=== PATIENT | female | born 1975 | race Caucasian/White ===

== ENCOUNTER 2018-05-03 04:28 | Emergency (ER) | payer SELFPAY ==
[2018-05-03] MEDS ORDERED: KETOROLAC TROMETHAMINE INJ/PF 30 MG/1 ML SDV IM ONE (04:50)
[2018-05-03] MEDS ORDERED: ONDANSETRON 4 MG TAB.RAPDIS PO ONE (04:51)
--- NOTE | 2018-05-03 04:53 | ER Document Report ---
ED General - General Chief Complaint: Flank Pain Stated Complaint: RIGHT SIDE PAIN Time Seen by Provider: 05/03/18 04:48 Notes: Patient is a 42-year-old female presents with complaint of pain of the right kidney. Some nausea. Symptoms started yesterday. She still having some dysuria as well and spinning burning with urination. She has a history of kidney infection says this feels very similar. No history of kidney stone. Some nausea. No vomiting. No diarrhea. No anterior abdominal pain. TRAVEL OUTSIDE OF THE [place] IN LAST 30 DAYS: No - Related Data Allergies/Adverse Reactions: No Known Allergies Allergy (Verified 05/03/18 04:55) Past Medical History - Social History Smoking Status: Unknown if Ever Smoked Frequency of alcohol use: None Drug Abuse: None Family History: Reviewed & Not Pertinent Review of Systems - Review of Systems Notes: My Normal Review Basic REVIEW OF SYSTEMS: CONSTITUTIONAL : Denies fever, chills, or sweats. Denies recent illness. RESPIRATORY: Denies cough, cold, or chest congestion. Denies shortness of breath, difficulty breathing, or wheezing. GASTROINTESTINAL: Denies abdominal pain. Denies nausea, vomiting, or diarrhea. GENITOURINARY: Dysuria MUSCULOSKELETAL: Pain over right lower back. SKIN: Denies rash or skin lesions. NEUROLOGICAL: Denies sensory or motor loss. ALL OTHER SYSTEMS REVIEWED AND NEGATIVE. Physical Exam - Vital signs Vitals: Temp Pulse Resp BP Pulse Ox 98.7 F 87 18 131/77 H 96 05/03/18 04:34 05/03/18 04:34 05/03/18 04:34 05/03/18 04:34 05/03/18 04:34 - Notes Notes: General Appearance: Well nourished, alert, cooperative, no acute distress, moderate obvious discomfort. Vitals: reviewed, See vital signs table. Eyes: PERRL, EOMI, Conjuctiva clear Lungs: No wheezing, No rales, No rhonci, No accessory muscle use, good air exchange bilaterally. Heart: Normal rate, Regular rythm, No murmur, no rub Back: Positive Sin sign on right. Abdomen: Normal BS, soft, No rigidity, No abdominal tenderness, No guarding, no rebound, no abdominal masses, no organomegaly Extremities: strength 5/5 in all extremities. Skin: warm, dry, appropriate color, no rash Neuro: speech clear, oriented x 3, normal affect, responds appropriately to questions. Course - Re-evaluation Re-evalutation: 05/03/18 06:14 Patient's urinalysis consistent with that of pyonephritis. I did perform an ultrasound being that her pain is one-sided and she did have some blood in her urine. There is no evidence of hydronephrosis. [facility] is a possible hypoechoic area in the left kidney. Informed patient symptoms PEEP of renal cysts. I informed her that she should have a repeat ultrasound in 6 months to have this reevaluated. Patient is agreeable with this. Patient will be given dose of Rocephin. She will be sent home with some Zofran. I encouraged her to return to ER immediately if she has fevers, worsening pain, vomiting, or if she feels unwell. Patient agrees with plan and will be discharged home. Dictation of this chart was performed using voice recognition software; therefore, there may be some unintended grammatical errors. 05/03/18 06:14 - Vital Signs Vital signs: Temp Pulse Resp BP Pulse Ox 98.7 F 87 18 131/77 H 96 05/03/18 04:34 05/03/18 04:34 05/03/18 04:34 05/03/18 04:34 05/03/18 04:34 - Laboratory Laboratory results interpreted by me: 05/03/18 05:12 Urine Protein 30 H Urine Blood LARGE H Ur Leukocyte Esterase LARGE H Discharge - Discharge Clinical Impression: Pyelonephritis Condition: Good Disposition: HOME, SELF-CARE Additional Instructions: PYELONEPHRITIS: Your evaluation shows evidence of pyelonephritis. This is an infection in the kidney. Typical symptoms are fever, pain in the flank, pain on urination, and frequent urination. Many cases of pyelonephritis can be treated at home. Hospital care may be necessary for patients who are very ill, or elderly or . Pyelonephritis is treated with antibiotics. Be sure to take all the medication as prescribed. Drink plenty of liquids (about three quarts per day). You may take acetaminophen for fever. You should feel significantly improved within two days. You should have a recheck of your urine in about one week to insure that the infection is gone. Return for a re-examination if your symptoms worsen in any way -- such as high fever, shaking chills, severe weakness or dizziness, severe pain, or inability to pass your urine. TORADOL INJECTION: You have been given an injection of ketorolac tromethamine (Toradol). This is an excellent, safe drug for pain control. It also has potent antiinflammatory action. You should have significant pain relief within about one hour. Toradol is not addicting and is non-sedating. It does not interfere with driving or work. Call or return if you develop itching, hives, shortness of breath, or rash. ANTINAUSEA MEDICATION: You have been given a medication to suppress nausea and vomiting. This type of medication can be given as a shot, pill, or suppository. It will usually last for many hours. Pills and shots usually last six to eight hours, suppositories last about 12 hours. For the typical illness, only one or two doses of the medication may be necessary. Mild lightheadedness may occur. This type of medicine can cause drowsiness. Do not drive or operate dangerous machinery while under its influence. Do not mix with alcohol. See your doctor at once if you have muscle spasms or tightness, or uncontrollable motions (particularly of the neck, mouth, or jaw). Persistent vomiting or severe lightheadedness should also be evaluated by the physician. ROCEPHIN: You have been given an injection of an antibiotic called Rocephin (ceftriaxone). Sometimes the injection must be combined with antibiotic pills. For some infections, such as an uncomplicated ear infection, Rocephin provides all the antibiotic that's needed. The antibiotic will be in your body for about two days. For serious infections, we usually repeat doses of Rocephin daily. Side effects are very unusual following a shot. Women may develop vaginal yeast infections, and babies can get yeast (thrush) in the mouth following the use of antibiotics. Contact your physician if you have symptoms with this medication. Allergy to this antibiotic can result in hives, wheezing, faintness, or itching. If symptoms of allergy occur, call the doctor at once. CEPHALEXIN: The antibiotic you've been prescribed is a member of the cephalosporin class. This type of antibiotic covers a wide variety of infections, including those of the skin, lungs, and urinary tract. It's useful for staph infections. This antibiotic is slightly similar to the penicillin family. In rare cases, a person who is allergic to penicillin will also be allergic to this medication. If you have had a severe allergic reaction to penicillin, and have not taken this antibiotic since that time, notify your doctor. Antibiotics which cover many germs ("broad spectrum" antibiotics) are more likely to cause diarrhea or "yeast" infections. Women prone to vaginal yeast problems may suffer an attack after taking this antibiotic. In infants, oral thrush (white spots "stuck" on the cheek) or yeast diaper rash may result. See your doctor if these problems occur. Call at once if you develop itching, hives, shortness of breath, or lightheadedness. FOLLOW-UP CARE: If you have been referred to a physician for follow-up care, call the physicians office for an appointment as you were instructed or within the next two days. If you experience worsening or a significant change in your symptoms, notify the physician immediately or return to the Emergency Department at any time for re-evaluation. Please return to ER immediately if you have fevers, worsening pain, intractable vomiting, or feel that you are worsening in any way. Prescriptions: Cephalexin Monohydrate [Keflex 500 mg Capsule] 500 mg PO BID #14 capsule
[2018-05-03 05:32] LABS: APPEARANCE,URINE CLOUDY; BILIRUBIN,URINE NEGATIVE (NEGATIVE); COLOR,URINE YELLOW; GLUCOSE, URINE NEGATIVE (NEGATIVE); KETONES,URINE NEGATIVE (NEGATIVE); LEUKOCYTE ESTERASE,URINE LARGE (NEGATIVE); NITRITE,URINE NEGATIVE (NEGATIVE); PROTEIN,URINE 30 mg/dL (NEGATIVE); URINE SPECIFIC GRAVITY 1.009; UROBILINOGEN,URINE NEGATIVE mg/dL (<2.0)
[2018-05-03] MEDS ORDERED: CEFTRIAXONE INJ 1000 MG VIAL IM ONE (06:02)
[2018-05-03] MEDS ORDERED: ONDANSETRON ODT 4 MG TAB (6 TAB/ER DISP) PO PRN (06:04)
--- NOTE | 2018-05-03 06:05 | RADIOLOGY REPORT (SQ) ---
EXAM DESCRIPTION: US RETROPERITONEUM COMPLETED DATE/TME: 05/03/2018 04:49 CLINICAL HISTORY: 42 years Female, right flank pain Comparison: None. LIMITATIONS: Decompressed urinary bladder. FINDINGS: 13-cm right kidney, 13-cm left kidney with possible punctate nephrolithiasis, and decompressed urinary bladder appear otherwise of normal size, shape, echotexture, and vascularity. Moderate hepatic steatosis. IMPRESSION: 1. No acute findings of the renal system. Possible punctate left nephrolithiasis. Limitation. 2. Moderate hepatic steatosis.
[2018-05-03 06:29] VITALS: BP 136/71
== END 2018-05-03 06:28 | disposition home or self-care (01) ==
LOC: ER 04:28
DX: N12 Tubulo-interstitial nephritis, not specified as acute or chronic (principal); R31.9 Hematuria, unspecified; M54.5 Low back pain
CPT/HCPCS: 99284; 96372; 87086; 81025; 87088; 81001; 87186; 76770; S0119; J1885; J0696

== ENCOUNTER 2018-05-16 11:32 | Emergency (ER) | payer SELFPAY ==
[2018-05-16] MEDS ORDERED: IBUPROFEN 800 MG TABLET PO ONE (12:09)
--- NOTE | 2018-05-16 12:14 | ER Document Report ---
HPI - HPI Patient complains to provider of: Right ear pain Time Seen by Provider: 05/16/18 12:00 Onset: Yesterday Onset/Duration: Waxing and waning Quality of pain: Sharp Pain Level: 5 Context: Patient complains of intermittent sharp pain to right ear when she swallows liquids. Patient reports 4 episodes today. Patient denies any current pain at this time. Patient denies any fever. Patient denies any drainage from the ear. Associated Symptoms: Earache. denies: Nonproductive cough, Fever, Nausea Exacerbated by: Other - Swallowing liquids Relieved by: Remaining still Similar symptoms previously: Yes - February had a similar episode Recently seen / treated by doctor: No - ROS ROS below otherwise negative: Yes Systems Reviewed and Negative: Yes All other systems reviewed and negative - CONSTITUTIONAL Constitutional: DENIES: Fever, Chills - EENT EENT: REPORTS: Ear Pain. DENIES: Sore Throat, Eye problems - NEURO Neurology: DENIES: Headache - RESPIRATORY Respiratory: DENIES: Trouble Breathing - GASTROINTESTINAL Gastrointestinal: DENIES: Nausea, Patient vomiting - REPRODUCTIVE Reproductive: DENIES: : - MUSCULOSKELETAL Musculoskeletal: DENIES: Extremity pain - DERM Skin Color: Normal Skin Problems: None Past Medical History - General Information source: Patient - Social History Smoking Status: Current Every Day Smoker Chew tobacco use (# tins/day): No Smoking Education Provided: Yes Frequency of alcohol use: None Drug Abuse: None Occupation: None Family History: Reviewed & Not Pertinent Patient has suicidal ideation: No Patient has homicidal ideation: No - Medical History Medical History: Negative Renal/ Medical History: Denies: Hx Peritoneal Dialysis Surgical Hx: Negative Vertical Provider Document - CONSTITUTIONAL Agree With Documented VS: Yes Exam Limitations: No Limitations General Appearance: WD/WN, No Apparent Distress - INFECTION CONTROL TRAVEL OUTSIDE OF THE [place] IN LAST 30 DAYS: No - HEENT HEENT: Atraumatic, Normocephalic. negative: Pharyngeal Exudate, Pharyngeal Tenderness, Pharyngeal Erythema, Tympanic Membrane Red, Tympanic Membrane Bulging Notes: No ear tenderness at this time, no swelling to right external auditory canal, no pain with movement of right helix. No salivary gland enlargement. Patient with subtle popping to right TMJ joint with opening and closing mouth. Patient with dental caries although none tender at this time. - NECK Neck: Normal Inspection, Supple. negative: Lymphadenopathy-Left, Lymphadenopathy-Right - RESPIRATORY Respiratory: Breath Sounds Normal, No Respiratory Distress, Chest Non-Tender - CARDIOVASCULAR Cardiovascular: Regular Rate, Regular Rhythm, No Murmur - BACK Back: Normal Inspection - MUSCULOSKELETAL/EXTREMETIES Musculoskeletal/Extremeties: HERNESTO DUMONT - NEURO Level of Consciousness: Awake, Alert, Appropriate Motor/Sensory: No Motor Deficit - DERM Integumentary: Warm, Dry, No Rash Course - Re-evaluation Re-evalutation: 05/16/18 13:18 Patient advised of strep test results. Patient presents with out any active pain symptoms at present although reports 4 episodes of brief sharp right ear pain with swallowing liquids. Patient encouraged to follow-up with ENT for further evaluation. Throat culture is pending at this time. - Vital Signs Vital signs: Temp Pulse Resp BP Pulse Ox 98.2 F 60 16 126/57 H 94 05/16/18 11:41 05/16/18 11:41 05/16/18 11:41 05/16/18 11:41 05/16/18 11:41 - Laboratory Laboratory results interpreted by me: 05/16/18 12:54 Labs- Entire Visit 05/16/18 12:06 Group A Strep Rapid NEGATIVE Discharge - Discharge Clinical Impression: Otalgia of right ear Condition: Stable Disposition: HOME, SELF-CARE Instructions: Anti-Inflammatory Medication ([facility]) Additional Instructions: Return immediately for any new or worsening symptoms Followup with your primary care provider, call tomorrow to make a followup appointment Follow-up with an research and insights executive for further evaluation Prescriptions: Naproxen [Naprosyn 250 Nmg Tablet] 1 tab PO BID #14 tablet Referrals: [facility] [Provider Group] - Follow up as needed [facility] [Provider Group] - Follow up as needed
[2018-05-16 13:15] VITALS: BP 107/62
== END 2018-05-16 13:14 | disposition home or self-care (01) ==
LOC: ER 11:32
DX: H92.01 Otalgia, right ear (principal); F17.200 Nicotine dependence, unspecified, uncomplicated
CPT/HCPCS: 87070; 87880; 99283

== ENCOUNTER 2018-05-18 05:30 | Emergency (ER) | payer SELFPAY ==
[2018-05-18 05:37] VITALS: BP 149/91
[2018-05-18] MEDS ORDERED: IBUPROFEN 800 MG TABLET PO ONE (06:12)
--- NOTE | 2018-05-18 06:28 | ER Document Report ---
HPI - HPI Patient complains to provider of: Right ear pain Time Seen by Provider: 05/18/18 06:12 Pain Level: 5 Context: Patient is a 42-year-old female presents to the emergency department for continued pain in her right ear. Patient states she was seen here on Thursday and told to take Naprosyn [id number] for generalized right ear pain. States she was told that there was no infection. Patient states she continues with pain which is why she presents to the emergency room. Patient states that time she does have pain in her right side of her throat. Patient's denying any fever. States she does have a generalized cough but is denying any ear drainage or congestion. Patient's denying any generalized rash. Past medical history: None Medications: None Allergies: None - CONSTITUTIONAL Constitutional: DENIES: Fever, Chills - EENT EENT: REPORTS: Ear Pain - Rt ear - RESPIRATORY Respiratory: REPORTS: Coughing - REPRODUCTIVE Reproductive: DENIES: : Past Medical History - General Information source: Patient - Social History Smoking Status: Current Every Day Smoker Frequency of alcohol use: Rare Drug Abuse: None Family History: Reviewed & Not Pertinent Patient has suicidal ideation: No Patient has homicidal ideation: No Renal/ Medical History: Denies: Hx Peritoneal Dialysis Vertical Provider Document - CONSTITUTIONAL Agree With Documented VS: Yes Notes: GENERAL: Alert, interacts well. Tearful HEAD: Normocephalic, atraumatic. EYES: Pupils equal, round, and reactive to light. Extraocular movements intact. ENT: Oral mucosa moist, tongue midline. Nares patent, TM's intact, nonerythematous, nonbulging bilaterally. Patient does have tragal tenderness noted right ear as well as slight erythema and swelling noted to the right canal. No mastoid erythema or swelling noted. Pharynx within normal limits no palatal petechiae no exudate noted NECK: Full range of motion. Supple. Trachea midline. LUNGS: Clear to auscultation bilaterally, no wheezes, rales, or rhonchi. No respiratory distress. HEART: Regular rate and rhythm. No murmur ABDOMEN: Soft, non-tender. Non-distended. Bowel sounds present in all 4 qu adrants. EXTREMITIES: Moves all 4 extremities spontaneously. No edema, normal radial and dorsalis pedis pulses bilaterally. No cyanosis. BACK: no cervical, thoracic, lumbar midline tenderness. No saddle anesthesia, normal distal neurovascular exam. NEUROLOGICAL: Alert and oriented x3. Normal speech. cranial nerves II through XII grossly intact. PSYCH: Normal affect, normal mood. SKIN: Warm, dry, normal turgor. No rashes or lesions noted. - INFECTION CONTROL TRAVEL OUTSIDE OF THE [place] IN LAST 30 DAYS: No Course - Re-evaluation Re-evalutation: 05/18/18 06:24 Patient does have signs of otitis externa, will treat with antibiotic otic drops. Discussed close follow-up with primary care provider and ENT. Patient voices understanding is stable for discharge. - Vital Signs Vital signs: Temp Pulse Resp BP Pulse Ox 97.7 F 85 20 149/91 H 99 05/18/18 05:34 05/18/18 05:34 05/18/18 05:34 05/18/18 05:34 05/18/18 05:34 Discharge - Discharge Clinical Impression: Otitis externa Qualifiers: Otitis externa type: unspecified type Chronicity: acute Laterality: right Qualified Code(s): H60.501 - Unspecified acute noninfective otitis externa, right ear Condition: Stable Disposition: HOME, SELF-CARE Instructions: Otitis Externa ([facility]), Use of Ear Drops ([facility]) Additional Instructions: As we discussed you have been seen and treated in the emergency department for an outer ear infection. Please make sure you use antibiotics as prescribed. Please also follow-up with your primary care provider in the next 24-48 hours. Please also return to the emergency room should you break out with a generalized rash over the right side of your face or ear. Please return to the emergency room for any other concerning symptoms. Prescriptions: Ciprofloxacin HCl/Dexameth [Ciprodex Otic Suspension 7.5 ml Bottle] 4 drop AD BID #1 bottle Forms: Return to Work
[2018-05-18] MEDS ORDERED: CIPROFLOXACIN HCL/DEXAMETH OTIC DROP 7.5 ML AD ONE (06:35)
== END 2018-05-18 06:30 | disposition home or self-care (01) ==
LOC: ER 05:30
DX: H60.501 Unspecified acute noninfective otitis externa, right ear (principal); H92.01 Otalgia, right ear; J02.9 Acute pharyngitis, unspecified; R05 Cough; F17.200 Nicotine dependence, unspecified, uncomplicated
CPT/HCPCS: 99282; J3490

== ENCOUNTER 2020-02-11 19:44 | Emergency (ER) | payer SELFPAY ==
[2020-02-11] MEDS ORDERED: DIPHENHYDRAMINE HCL 25 MG CAPSULE PO ONE (20:37)
--- NOTE | 2020-02-11 20:38 | ER Document Report ---
ED Medical Screen (RME) - General Chief Complaint: Eye Problem Stated Complaint: LEFT SWOLLEN EYE Time Seen by Provider: 02/11/20 20:34 Mode of Arrival: Ambulatory Information source: Patient Notes: 44-year-old male presents to ED for swelling to the left eye. 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 She states she has had blurry vision and itching. She states she does smoke a pack a day drinks once or twice a week but does not use any illicit drugs. I have ordered a visual acuity as w ell as I try to be set up when she gets to the room and she will be seen by another provider. I have greeted and performed a rapid initial assessment of this patient. A comprehensive ED assessment and evaluation of the patient, analysis of test results and completion of medical decision making process will be conducted by an additional ED providers. TRAVEL OUTSIDE OF THE [place] IN LAST 30 DAYS: No - Related Data Allergies/Adverse Reactions: No Known Allergies Allergy (Verified 05/18/18 05:34) Past Medical History Renal/ Medical History: Denies: Hx Peritoneal Dialysis Physical Exam - Vital signs Vitals: Temp Pulse Resp BP Pulse Ox 98.5 F 81 15 124/90 H 99 02/11/20 19:57 02/11/20 19:57 02/11/20 19:57 02/11/20 19:57 02/11/20 19:57 Course - Vital Signs Vital signs: Temp Pulse Resp BP Pulse Ox 98.5 F 81 15 124/90 H 99 02/11/20 19:57 02/11/20 19:57 02/11/20 19:57 02/11/20 19:57 02/11/20 19:57
--- NOTE | 2020-02-11 22:57 | ER Document Report ---
ED ENT - General Chief Complaint: eye swelling Stated Complaint: LEFT SWOLLEN EYE Time Seen by Provider: 02/11/20 20:34 Mode of Arrival: Ambulatory Notes: Patient is a 44-year-old female who comes emergency department for chief complaint of irritation to the left eyelid mainly in the upper eyelid. She states that this has been bothering her almost 1 week, she states that she at first thought maybe she got something in her eye or on her eyelid at work, possibly epoxy. She states it has been only mildly itchy and irritated for the past week but this morning she woke and there was increased swelling to the left eyelid. She states she had a little bit of watering from her eyes but denies any actual pain to the eye itself, denies foreign body sensation, denies loss of vision. She wears reading glasses but no contacts or visual correction otherwise. She admits that she has been rubbing in the area. Tetanus is up-to-date. She denies any daily medications or diagnosed medical history. She denies any other complaints. TRAVEL OUTSIDE OF THE [place] IN LAST 30 DAYS: No - Related Data Allergies/Adverse Reactions: No Known Allergies Allergy (Verified 05/18/18 05:34) Past Medical History - General Information source: Patient - Social History Smoking Status: Current Every Day Smoker Chew tobacco use (# tins/day): No Frequency of alcohol use: None Drug Abuse: None Lives with: Family Family History: Reviewed & Not Pertinent Patient has homicidal ideation: No Renal/ Medical History: Denies: Hx Peritoneal Dialysis Past Surgical History: Reports: Hx Tonsillectomy - Immunizations Immunizations up to date: Yes Hx Diphtheria, Pertussis, Tetanus Vaccination: Yes Review of Systems - Review of Systems Constitutional: No symptoms reported EENT: See HPI Cardiovascular: No symptoms reported Respiratory: No symptoms reported Gastrointestinal: No symptoms reported Genitourinary: No symptoms reported Female Genitourinary: No symptoms reported Musculoskeletal: No symptoms reported Skin: No symptoms reported Hematologic/Lymphatic: No symptoms reported Neurological/Psychological: No symptoms reported Physical Exam - Vital signs Vitals: Temp Pulse Resp BP Pulse Ox 98.5 F 81 15 124/90 H 99 02/11/20 19:57 02/11/20 19:57 02/11/20 19:57 02/11/20 19:57 02/11/20 19:57 - Notes Notes: GENERAL: Alert, interacts well. No acute distress. Talkative and well-appearing HEAD: Normocephalic, atraumatic. EYES: Pupils equal, round, and reactive to light. Extraocular movements intact. Pupils equal, round, and reactive to light. Extraocular movements intact. Sclera clear and not injected. No discharge. No superficial foreign body, no fluorescein uptake, negative Jairo sign. The left upper eyelid has a small abrasion and there is mild swelling/edema with mild erythema as well. There is no severe tenderness or warmth to the area, no induration or fluctuance, no streaking away from the area, eyelid is not swollen shut. Unremarkable exam otherwise ENT: Oral mucosa moist, tongue midline. Oropharynx unremarkable. Airway patent. Nares patent, sinuses non-tender, ear canals unremarkable, TM's intact. NECK: Full range of motion. Supple. Trachea midline. No lymphadenopathy. LUNGS: Clear to auscultation bilaterally, no wheezes, rales, or rhonchi. No respiratory distress. Non-tender chest wall. HEART: Regular rate and rhythm. No murmur ABDOMEN: Soft, non-tender. Non-distended. Bowel sounds present in all 4 quadrants. GENITOURINARY: Deferred EXTREMITIES: Moves all 4 extremities spontaneously. No edema, normal radial and dorsalis pedis pulses bilaterally. No cyanosis. BACK: no cervical, thoracic, lumbar midline tenderness. No saddle anesthesia, normal distal neurovascular exam. Moves all extremities in full range of motion. NEUROLOGICAL: Alert and oriented x3. Normal speech. Cranial nerves II through XII grossly intact. Strength 5/5 in all extremities. PSYCH: Normal affect, normal mood. SKIN: Warm, dry, normal turgor. No rashes or lesions noted. - HEENT Visual acuity- Right eye: 20/40 Visual acuity- Left eye: 20/50 Visual acuity- Both eyes: 20/40 Corrective lenses worn: No Course - Re-evaluation Re-evalutation: Patient has a small abrasion over the left upper eyelid, there is surrounding erythema, the whole area is mildly edematous in appearance. There is no overt cellulitis, no drainage from the small abrasion, no induration or fluctuance. The eyeball itself is unremarkable including sclera, pupil, EOMs, and fluorescein examination with Padron and slit lamp. No visual loss or complaint, no eye complaint, on the eyelid. This appears to be inflamed but not overtly infected. Patient admits to frequently scratching it and rubbing the area. The area is itchy but not painful. Patient will be placed on steroids and antihistamine for possible allergic component, she also be covered with cephalexin because of possible early cellulitis around the abrasion. Patient has no pain with EOM movements. I discussed expectations, primary care follow- up, and return precautions. Patient states appreciation and agreement. Stable and well-appearing at time of discharge. - Vital Signs Vital signs: Temp Pulse Resp BP Pulse Ox 98.6 F 68 14 130/87 H 96 02/11/20 23:13 02/11/20 23:13 02/11/20 23:13 02/11/20 23:13 02/11/20 23:13 Discharge - Discharge Clinical Impression: Swelling of left eyelid Eyelid abrasion Qualifiers: Encounter type: initial encounter Laterality: left Qualified Code(s): S00.212A - Abrasion of left eyelid and periocular area, initial encounter Condition: Stable Disposition: HOME, SELF-CARE Additional Instructions: There is irritation and swelling with an allergic appearance to the left eyelid. There is also an abrasion with surrounding redness. We are treating you with the prednisone steroid and the antihistamine, we also cover you for possible early developing infection of the skin (cellulitis) with the Keflex. Keep the area clean, clean gently with soap and water. Symptoms should simply resolve with time. Follow-up with primary care. Return if you worsen including increased swelling, spreading redness, developing pain, discolored discharge, loss of vision, fever, or any other concerning symptoms. Prescriptions: Cetirizine HCl 10 mg PO DAILY #30 tablet Prednisone [Deltasone 10 mg Tablet] 10 mg PO ASDIR PRN #21 tablet PRN Reason: Cephalexin Monohydrate [Keflex 500 mg Capsule] 500 mg PO QID #28 capsule Forms: Return to Work
[2020-02-11 23:14] VITALS: BP 130/87
== END 2020-02-11 23:13 | disposition home or self-care (01) ==
LOC: ER 19:44
DX: S00.212A Abrasion of left eyelid and periocular area, initial encounter (principal); H57.9 Unspecified disorder of eye and adnexa; X58.XXXA Exposure to other specified factors, initial encounter; F17.200 Nicotine dependence, unspecified, uncomplicated
CPT/HCPCS: 99283